=== PATIENT | female | born 1970 | race Caucasian/White ===

== ENCOUNTER 2017-04-29 15:36 | Inpatient (IN) | payer OTHER ==
[~2017-04-29] VITALS: Ht 160 cm; Wt 175.0 kg
[2017-04-29 17:22] LABS: HEMATOCRIT 40.3 % (36.0-46.0); MCH 28.4 PG (29.0-34.0); MCHC 34.5 G/DL (30.0-36.0); MCV 82.4 FL (83-99); MEAN PLAT.VOLUME 9.6 uM^3 (9.5-12.4); PLATELET COUNT 394 K/uL (156-360); RBC DIS.WIDTH-CV 11.9 % (11.8-14.6); RBC DIS.WIDTH-SD 36.2 % (39-53); RED BLOOD COUNT 4.89 M/uL (3.80-5.20); WHITE BLOOD COUNT 13.8 K/uL (4.1-10.2)
[2017-04-29 17:24] LABS: ADD MIUA? YES; BILIRUBIN NEGATIVE; BLOOD NEGATIVE; COLOR YELLOW ((YELLOW)); GLUCOSE (STRIP) >=500; KETONES NEGATIVE; LEUKOCYTES NEGATIVE; NITRITE NEGATIVE; PROTEIN (STRIP) 30; SPECIFIC GRAVITY 1.036 (1.000-1.030); UROBILINOGEN 0.2 MG/DL (0.2-1.0)
[2017-04-29 17:31] LABS: CHLORIDE 85 mEq/L (99-109); POTASSIUM 4.5 mEq/L (3.7-5.4); SODIUM 121 mEq/L (136-147)
[2017-04-29 17:33] LABS: GLUCOSE 210 mg/dL (70-99)
[2017-04-29 17:34] LABS: ANION GAP 13 MEQ/L (2-14)
[2017-04-29 17:35] LABS: TOTAL BILIRUBIN 0.6 mg/dL (0.0-1.0)
[2017-04-29 17:36] LABS: ALKALINE PHOSPHATASE 76 IU/L (3-129)
[2017-04-29 17:37] LABS: GFR ESTIMATE (CALCULATED) > 59 mL/min/
[2017-04-29] MEDS ORDERED: NAPROXEN500 MG PO (17:37)
[2017-04-29 17:38] LABS: UREA NITROGEN (BUN) 24 mg/dL (9-23)
[2017-04-29 17:40] LABS: LIPASE 15 U/L (1.0-51.0)
[2017-04-29 17:45] LABS: QUANTITATIVE HCG < 4.0 MIU/ML
[2017-04-29 17:46] LABS: BACTERIA NONE SEEN /HPF; EPITHELIAL CELLS RARE /HPF; MUCUS NONE SEEN /LPF; RED BLOOD CELLS 0-5 /HPF (0-5); UCUL ADDED? NO; WHITE BLOOD CELLS 0-5 /HPF (0-5)
[2017-04-29] MEDS ORDERED: ZESTRIL10 MG PO (19:19)
[2017-04-29] MEDS ORDERED: AMBIEN10 MG PO (19:21)
[2017-04-29] MEDS ORDERED: LEVEMIR FL100 UNIT/1 SC (19:21)
[2017-04-29] MEDS ORDERED: FLEXERIL10 MG PO (19:22)
[2017-04-29] MEDS ORDERED: TYLENOL EXTRA500 MG PO (19:23)
[2017-04-29] MEDS ORDERED: MELATONIN5 M1 PO (19:23)
[2017-04-29] MEDS ORDERED: NAPROSYN500 MG PO (19:24)
[2017-04-29 20:29] LABS: CHLORIDE 87 mEq/L (99-109); POTASSIUM 4.8 mEq/L (3.7-5.4); SODIUM 123 mEq/L (136-147)
[2017-04-29 20:31] LABS: GLUCOSE 192 mg/dL (70-99)
[2017-04-29 20:32] LABS: ANION GAP 12 MEQ/L (2-14)
[2017-04-29 20:34] LABS: GFR ESTIMATE (CALCULATED) > 59 mL/min/
[2017-04-29 20:35] LABS: UREA NITROGEN (BUN) 24 mg/dL (9-23)
[2017-04-29 22:37] VITALS: BP 129/58
[2017-04-30 01:38] LABS: CHLORIDE 87 mEq/L (99-109); POTASSIUM 4.8 mEq/L (3.7-5.4); SODIUM 122 mEq/L (136-147)
[2017-04-30 01:40] LABS: GLUCOSE 194 mg/dL (70-99)
[2017-04-30 01:41] LABS: ANION GAP 10 MEQ/L (2-14)
[2017-04-30 01:43] LABS: GFR ESTIMATE (CALCULATED) > 59 mL/min/
[2017-04-30 01:44] LABS: UREA NITROGEN (BUN) 20 mg/dL (9-23)
[2017-04-30 04:06] VITALS: BP 121/64
[2017-04-30 07:08] LABS: BASOPHIL COUNT 0.1 K/uL (0-0.1); EOSINOPHIL (%) 1.5 % (0-5); EOSINOPHIL COUNT 0.2 K/uL (0-0.3); HEMATOCRIT 38.8 % (36.0-46.0); IMMATURE GRANULOCYTE (%) 1.2 % (0.0-0.7); IMMATURE GRANULOCYTE COUNT 0.1 K/uL; INSTRUMENT ABS NEUTROPHIL CT 7.6 K/uL; LYMPHOCYTE COUNT 2.2 K/uL (1.0-2.8); MCH 29.5 PG (29.0-34.0); MCHC 34.5 G/DL (30.0-36.0); MCV 85.3 FL (83-99); MEAN PLAT.VOLUME 9.6 uM^3 (9.5-12.4); MONOCYTE (%) 11.1 % (3-12); MONOCYTE COUNT 1.3 K/uL (0-0.8); NEUTROPHIL (%) 66.2 % (45-76); NEUTROPHIL COUNT 7.6 K/uL (1.8-6.4); PLATELET COUNT 344 K/uL (156-360); RBC DIS.WIDTH-CV 12.3 % (11.8-14.6); RBC DIS.WIDTH-SD 37.8 % (39-53); RED BLOOD COUNT 4.55 M/uL (3.80-5.20); WHITE BLOOD COUNT 11.5 K/uL (4.1-10.2)
[2017-04-30 07:38] LABS: ANION GAP 10 MEQ/L (2-14); CHLORIDE 88 MEQ/L (99-109); GFR ESTIMATE (CALCULATED) > 59 mL/min/; GLUCOSE 188 mg/dL (70-99); POTASSIUM 4.7 MEQ/L (3.7-5.4); SAMPLE HEMOLYSIS CHECK 0; SAMPLE ICTERIC CHECK 0; SAMPLE LIPEMIA CHECK 0; SODIUM 123 MEQ/L (136-147); UREA NITROGEN (BUN) 17 mg/dL (9-23)
[2017-04-30 08:00] VITALS: BP 130/81
[2017-04-30 11:56] VITALS: BP 143/67
[2017-04-30 15:21] VITALS: BP 166/75
[2017-04-30 15:53] LABS: UR CREATININE CONCENTRATION 127.3 MG/DL
[2017-04-30 18:18] VITALS: BP 141/85
[2017-04-30 18:28] LABS: ANION GAP 8 MEQ/L (2-14); CHLORIDE 92 MEQ/L (99-109); GFR ESTIMATE (CALCULATED) > 59 mL/min/; GLUCOSE 198 mg/dL (70-99); POTASSIUM 5.4 MEQ/L (3.7-5.4); SAMPLE HEMOLYSIS CHECK 0; SAMPLE ICTERIC CHECK 0; SAMPLE LIPEMIA CHECK 0; SODIUM 125 MEQ/L (136-147); UREA NITROGEN (BUN) 13 mg/dL (9-23)
[2017-04-30 21:21] LABS: POINT-OF-CARE METER ID UU14188625
[2017-04-30 23:38] VITALS: BP 165/84
[2017-05-01 03:47] VITALS: BP 146/81
[2017-05-01 06:51] LABS: ANION GAP 8 MEQ/L (2-14); CHLORIDE 91 MEQ/L (99-109); GFR ESTIMATE (CALCULATED) > 59 mL/min/; GLUCOSE 187 mg/dL (70-99); POTASSIUM 5.2 MEQ/L (3.7-5.4); SAMPLE HEMOLYSIS CHECK 0; SAMPLE ICTERIC CHECK 0; SAMPLE LIPEMIA CHECK 0; SODIUM 125 MEQ/L (136-147); UREA NITROGEN (BUN) 11 mg/dL (9-23)
[2017-05-01 08:04] VITALS: BP 175/90
[2017-05-01 08:32] LABS: POINT-OF-CARE METER ID UU14188625
[2017-05-01 12:00] VITALS: BP 191/84
[2017-05-01 12:55] LABS: POINT-OF-CARE METER ID UU14188625
[2017-05-01 15:22] LABS: ANION GAP 10 MEQ/L (2-14); CHLORIDE 93 MEQ/L (99-109); GFR ESTIMATE (CALCULATED) > 59 mL/min/; GLUCOSE 226 mg/dL (70-99); POTASSIUM 5.2 MEQ/L (3.7-5.4); SAMPLE HEMOLYSIS CHECK 0; SAMPLE ICTERIC CHECK 0; SAMPLE LIPEMIA CHECK 0; SODIUM 128 MEQ/L (136-147); UREA NITROGEN (BUN) 10 mg/dL (9-23)
[2017-05-01 16:06] VITALS: BP 136/63; BP 191/88
[2017-05-01 20:22] VITALS: BP 170/86
[2017-05-01 20:47] LABS: POINT-OF-CARE METER ID UU13113717
[2017-05-01 23:52] VITALS: BP 164/80
[2017-05-02 06:19] LABS: HEMATOCRIT 43.9 % (36.0-46.0); MCHC 33.5 G/DL (30.0-36.0); MCV 86.6 FL (83-99); MEAN PLAT.VOLUME 9.7 uM^3 (9.5-12.4); PLATELET COUNT 440 K/uL (156-360); RBC DIS.WIDTH-CV 12.6 % (11.8-14.6); RBC DIS.WIDTH-SD 39.5 % (39-53); RED BLOOD COUNT 5.07 M/uL (3.80-5.20); WHITE BLOOD COUNT 11.5 K/uL (4.1-10.2)
[2017-05-02 06:35] VITALS: BP 143/71
[2017-05-02 06:45] LABS: ANION GAP 10 MEQ/L (2-14); CHLORIDE 93 MEQ/L (99-109); GFR ESTIMATE (CALCULATED) > 59 mL/min/; GLUCOSE 187 mg/dL (70-99); POTASSIUM 4.9 MEQ/L (3.7-5.4); SAMPLE HEMOLYSIS CHECK 0; SAMPLE ICTERIC CHECK 0; SAMPLE LIPEMIA CHECK 0; SODIUM 128 MEQ/L (136-147); UREA NITROGEN (BUN) 11 mg/dL (9-23); URIC ACID 3.3 mg/dL (3.1-9.2)
[2017-05-02 07:23] VITALS: BP 139/72
[2017-05-02 11:12] VITALS: BP 151/66
[2017-05-02 15:12] VITALS: BP 151/64
[2017-05-02 16:12] LABS: POINT-OF-CARE METER ID UU13113717
[2017-05-02 16:26] LABS: ANION GAP 10 MEQ/L (2-14); CHLORIDE 94 MEQ/L (99-109); GFR ESTIMATE (CALCULATED) > 59 mL/min/; GLUCOSE 184 mg/dL (70-99); POTASSIUM 4.6 MEQ/L (3.7-5.4); SAMPLE HEMOLYSIS CHECK 0; SAMPLE ICTERIC CHECK 0; SAMPLE LIPEMIA CHECK 0; SODIUM 131 MEQ/L (136-147); UREA NITROGEN (BUN) 14 mg/dL (9-23)
[2017-05-02 19:50] VITALS: BP 141/78
[2017-05-02 20:33] LABS: POINT-OF-CARE METER ID UU14188625
[2017-05-02 23:53] VITALS: BP 130/73
[2017-05-03 03:41] VITALS: BP 142/70
[2017-05-03 06:31] LABS: ANION GAP 8 MEQ/L (2-14); CHLORIDE 95 MEQ/L (99-109); GFR ESTIMATE (CALCULATED) > 59 mL/min/; GLUCOSE 155 mg/dL (70-99); SAMPLE HEMOLYSIS CHECK 0; SAMPLE ICTERIC CHECK 0; SAMPLE LIPEMIA CHECK 0; SODIUM 130 MEQ/L (136-147); UREA NITROGEN (BUN) 17 mg/dL (9-23); URIC ACID 3.5 mg/dL (3.1-9.2)
[2017-05-03 07:18] VITALS: BP 134/65
[2017-05-03 07:35] LABS: POINT-OF-CARE METER ID UU14188625
[2017-05-03] MEDS ORDERED: AMLODIPINE BESYL5 MG PO (10:48)
[2017-05-03] MEDS ORDERED: FUROSEMIDE20 MG PO (10:49)
[2017-05-03] MEDS ORDERED: SODIUM CHLORIDE1 G1 PO (10:49)
[2017-05-03] MEDS ORDERED: ENDOCET 5-3251 EACH PO (10:50)
[2017-05-03] MEDS ORDERED: TRAMADOL HCL50 MG PO (10:50)
[2017-05-03] MEDS ORDERED: LYRICA50 MG PO (10:50)
[2017-05-03 11:14] VITALS: BP 123/63
[2017-05-03 11:15] LABS: POINT-OF-CARE METER ID UU14188625
[2017-05-03 15:14] VITALS: BP 149/66
== END 2017-05-03 16:47 | disposition home or self-care (01) | DRG 644 ==
LOC: EME 15:36 → EDOF 21:18 → 5SOUTH 21:18 → ENRESERV 21:20 → 5SOUTH 22:26
PROVIDERS: Hospitalist; Internal Medicine; Internal Medicine Nephrology; Nurse Practitioner Adult Health; Physician Assistant Medical
DX: E22.2 Syndrome of inappropriate secretion of antidiuretic hormone (principal); G89.29 Other chronic pain; M54.5 Low back pain; E66.01 Morbid (severe) obesity due to excess calories; Z68.44 Body mass index [BMI] 60.0-69.9, adult; E87.5 Hyperkalemia; E11.9 Type 2 diabetes mellitus without complications; E86.0 Dehydration; G62.9 Polyneuropathy, unspecified; I10 Essential (primary) hypertension; E78.5 Hyperlipidemia, unspecified; K59.00 Constipation, unspecified; K76.0 Fatty (change of) liver, not elsewhere classified; R16.0 Hepatomegaly, not elsewhere classified; F31.9 Bipolar disorder, unspecified; F12.90 Cannabis use, unspecified, uncomplicated; Z98.51 Tubal ligation status; Z79.4 Long term (current) use of insulin; Z82.49 Family history of ischemic heart disease and other diseases of the circulatory system; R80.9 Proteinuria, unspecified; R60.9 Edema, unspecified
CPT/HCPCS: 71020; 74000; 74176; 76705; 80048; 80048 91; 80053; 81003; 82436; 82533 91; 82570; 82948; 83690; 83930; 83935; 84133; 84156; 84295; 84300; 84443; 84550; 84702; 85025; 85027; 99281; 99285; J0360; J1644; J1815; J1885; J2270; J2405; J7030